=== PATIENT | male | born 1965 | race Caucasian/White ===

== ENCOUNTER 2017-05-12 21:59 | Emergency (ER) | payer BC ==
[~2017-05-12] VITALS: Ht 172.7 cm; Wt 88.5 kg
[2017-05-12 22:08] VITALS: BP 159/79; PULSE 95; RESP 14; TEMP 98.5; O2SAT 96
[2017-05-12] MEDS ORDERED: LISI-515 PO (22:12)
[2017-05-12] MEDS ORDERED: ROSU20 PO (22:12)
--- NOTE | 2017-05-12 22:27 | PD ---
HPI Chief Complaint: Injury Time Seen by Provider: 22:24 Travel History International Travel<30 days: No Contact w/Intl Traveler<30days: No Traveled to known affect area: No History of Present Illness HPI The patient is a 51-year-old male that was playing softball tonight and, while sliding into [employer] base, he plantar flexed and inverted his left ankle. Other than an abrasion on the right knee, he has no other injury. He states he felt a "pop" when this happened. His last tetanus shot was over 10 years ago. PFS Past Medical History Cardiovascular Problems: Yes (HTN) ?: Not Social History Tobacco Use: No Allergies-Medications (Allergen,Severity, Reaction): Coded Allergies: No Known Allergies (Verified Allergy, Mild, 05/12/17) Reported Meds & Prescriptions Reported Meds & Active Scripts Active Reported Lisinopril 20 Mg Tab 20 Mg PO DAILY Crestor (Rosuvastatin Calcium) 20 Mg Tab 20 Mg PO DAILY Review of Systems Except as stated in HPI: all other systems reviewed are Neg Physical Exam Narrative GENERAL: The patient is alert, oriented 3 in moderate apparent distress with his left ankle discomfort. His vital signs show blood pressure 159/79 but are otherwise normal. SKIN: Focused skin assessment warm/dry. HEAD: Atraumatic. Normocephalic. EYES: Pupils equal and round. No scleral icterus. No injection or drainage. ENT: No nasal bleeding or discharge. Mucous membranes pink and moist. NECK: Trachea midline. No JVD. CARDIOVASCULAR: Regular rate and rhythm. No murmur appreciated. RESPIRATORY: No accessory muscle use. Clear to auscultation. Breath sounds equal bilaterally. GASTROINTESTINAL: Abdomen soft, non-tender, nondistended. Hepatic and splenic margins not palpable. MUSCULOSKELETAL: No obvious deformities. No clubbing. No cyanosis. No edema. NEUROLOGICAL: Awake and alert. No obvious cranial nerve deficits. Motor grossly within normal limits. Normal speech. PSYCHIATRIC: Appropriate mood and affect; insight and judgment normal. Data Data Last Documented VS Vital Signs Date Time Temp Pulse Resp B/P (MAP) Pulse Ox O2 Delivery O2 Flow Rate FiO2 05/12/17 22:33 Room Air 05/12/17 22:08 98.5 95 14 159/79 (105) 96 Orders Orders Ankle, Complete ([id number]) (05/12/17 22:24) Wound Care (05/12/17 22:27) Tetanus/Diphtheria Tox Adult (Tetanus/Di (05/12/17 22:30) Splint Or Brace Apply/Monitor (05/12/17 22:55) Crutches (05/12/17 22:55) MDM Medical Decision Making Medical Screen Exam Complete: Yes Emergency Medical Condition: Yes Medical Record Reviewed: Yes Interpretation(s) X-rays show no subacute fracture or dislocation. Differential Diagnosis Left ankle sprain, fracture left ankle, dislocation left ankle, high ankle sprain Narrative Course There is no clinical evidence for a high ankle sprain. X-rays are negative for fracture or dislocation. The patient will be given a stirrup splint and crutches. The patient appears to have a superior splint at home which he will wear. He needs to use ice and elevation. Additional Instructions: Use the crutches until you can walk on level ground without pain. Elevate your ankle above your heart to keep the swelling down, this is important the first 48 hours. Med/Other Pt SpecificInfo: Prescription(s) given Scripts Ibuprofen (Ibuprofen) 800 Mg Tab 800 MG PO TID, #33 TAB 0 Refills Prov: Pratik Prater MD 05/12/17 Disposition: 01 DISCHARGE HOME Condition: Stable Pratik Prater MD May 12, 2017 22:27
[2017-05-12] MEDS ORDERED: TETANUS/DIPHTHERIA TOXOID ADULT 0.5 ML VIAL IM ONE (22:30)
--- NOTE | 2017-05-12 23:20 | RADRPT ---
EXAM DATE/TIME: 05/12/2017 22:40 [facility] COMPARISON: No previous studies available for comparison. INDICATIONS : Left ankle pain and swelling. Patient rolled his left ankle playing baseball. MEDICAL HISTORY : None. SURGICAL HISTORY : None. ENCOUNTER: Initial ACUITY: 1 day PAIN SCORE: 5/10 LOCATION: Left ankle. FINDINGS: Soft tissue swelling is present over the lateral malleolus. There is no evidence of acute fracture. B fiona mineralization is normal. The ankle mortise is intact. CONCLUSION: 1. There is no evidence of acute fracture. Servando Bustamante MD on May 12, 2017 at 23:19 Board Certified Radiologist. This report was verified electronically.
[2017-05-12] MEDS ORDERED: IBUP1TAB7 PO (23:30)
[2017-05-12] MEDS ORDERED: IBUPROFEN 800 MG TAB PO ONE (23:45)
== END 2017-05-13 00:13 | disposition home or self-care (01) ==
LOC: PHED 21:59
DX: S93.402A Sprain of unspecified ligament of left ankle, initial encounter (principal); S80.211A Abrasion, right knee, initial encounter; I10 Essential (primary) hypertension; W01.0XXA Fall on same level from slipping, tripping and stumbling without subsequent striking against object, initial encounter; Y93.64 Activity, baseball; Z23 Encounter for immunization
CPT/HCPCS: 29515; 73610; 90471; 90714; 99283; E0113